=== PATIENT | female | born 1950 | race Caucasian/White ===

== ENCOUNTER 2017-05-24 13:16 | Inpatient (IN) | payer BC ==
[~2017-05-24] VITALS: Ht 167.6 cm; Wt 95.0 kg
[2017-06-06] MEDS ORDERED: TENORMIN100 MG PO (13:25)
[2017-06-06] MEDS ORDERED: CELEBREX 200MG200 MG PO (13:26)
[2017-06-06] MEDS ORDERED: PROTONIX 40MG T40 MG PO (13:26)
[2017-06-06] MEDS ORDERED: VITAMINC1000TA PO (13:27)
[2017-06-06] MEDS ORDERED: TYLENOL 500MG500 MG PO (13:27)
[2017-06-06] MEDS ORDERED: LYSINE 500500 MG/TAB PO (13:27)
[2017-06-06] MEDS ORDERED: VITAMIND3 5000 PO (13:28)
[2017-06-06] MEDS ORDERED: MAGNESIUM500 MG PO (13:28)
[2017-06-06] MEDS ORDERED: FERROUSAL325 MG PO (13:29)
[2017-06-06] MEDS ORDERED: FOLIC ACID800 MCG PO (13:29)
[2017-06-06] MEDS ORDERED: MELAT3MGTAB PO (13:29)
[2017-06-07] VITALS (8 sets, daily range): BP systolic 104–132; BP diastolic 60–82; PULSE 49–71; TEMP 97.7–98
[2017-06-08 01:16] VITALS: BP 105/59; PULSE 86; TEMP 98.6
[2017-06-08 04:12] VITALS: BP 97/56; PULSE 85; TEMP 98.4
[2017-06-08 05:24] LABS: HEMATOCRIT 31.5 % (37.0-47.0); HEMOGLOBIN 10.3 g/dl (12.5-16.0)
[2017-06-08 08:02] VITALS: BP 94/60; PULSE 77; TEMP 98.5
[2017-06-08 11:56] VITALS: BP 91/58; PULSE 68; TEMP 98
[2017-06-08 15:44] VITALS: BP 90/52; PULSE 73; TEMP 98.6
[2017-06-08 20:00] VITALS: BP 98/65; PULSE 81; TEMP 98.2
[2017-06-09] VITALS: BP 94/58; PULSE 79; TEMP 98.5
[2017-06-09 04:33] VITALS: BP 113/66; PULSE 80; TEMP 98.9
[2017-06-09 06:25] LABS: HEMATOCRIT 30.6 % (37.0-47.0); HEMOGLOBIN 10.1 g/dl (12.5-16.0)
[2017-06-09] MEDS ORDERED: ASPI325T6 PO (07:24)
[2017-06-09] MEDS ORDERED: NORCO 325 MG-7.1 TAB PO (07:24)
[2017-06-09] MEDS ORDERED: ROXICODONE 55 MG/TAB PO (07:25)
[2017-06-09 08:12] VITALS: BP 96/56; PULSE 74; TEMP 99.4
[2017-06-09 11:57] VITALS: BP 86/48; PULSE 71; TEMP 97.7
== END 2017-06-09 13:45 | disposition home or self-care (01) | DRG 470 ==
LOC: JCC 06-07 07:30
PROVIDERS: Orthopaedic Surgery
PROC: 0SRB0JA Replacement of Left Hip Joint with Synthetic Substitute, Uncemented, Open Approach (ICD-10-PCS; principal; 2017-06-07 14:00)
DX: M16.12 Unilateral primary osteoarthritis, left hip (principal); J45.909 Unspecified asthma, uncomplicated; I10 Essential (primary) hypertension
CPT/HCPCS: A4314; A9284; C1713; C1776; J0690; J2250; J2405; J2704; J3010; J7120